=== PATIENT | male | born 1955 | race Two or more races ===

== ENCOUNTER 2024-06-10 05:42 | Emergency (ER) | payer BC, SELFPAY ==
[2024-06-10 05:44] VITALS: BMI 33.7
[2024-06-10 05:49] VITALS: BP 160/84; PULSE 60; RESP 18; TEMP 36.8; O2SAT 98
--- NOTE | 2024-06-10 06:24 | XR_ITS ---
Examination: Ribs, left, with PA chest, 5 views Technique: Chest PA, RIBS AP, RPO, LPO, AP coned lower ribs 5 views Exam date and time: June 10, 2024 0639 hrs. Indications: Patient fell today with injury to the left chest, left rib pain Findings: Mild prominence left ventricle No pneumothorax Suspicious for nondisplaced acute fracture left fifth rib anteriorly left sixth rib anteriorly Impression: No pneumothorax pulmonary contusion or hemothorax Suspicious for nondisplaced acute fractures left fifth sixth ribs anteriorly
[2024-06-10] MEDS: IBUPROFEN TAB 600 MG TABLET PO (07:29)
--- NOTE | 2024-06-10 07:31 | EDNOTE_ITS ---
ED Fall Injury RME/HPI General Chief Complaint: Chest Pain Stated Complaint: LFT SIDED RIB PAIN S/P FALLING OUT OF BED. Time Seen by Provider: 06/10/24 06:23 Arrival date/time: 06/10/24 05:42 68-year-old male presents to the emergency department complains of left-sided rib pain falling out of the bed last night patient reports no shortness of breath no abdominal pain no head or neck injury Limitations: no limitations Related Data Home Medications ?Medication ?Instructions ?Recorded ?Confirmed atorvastatin 10 mg tablet (Lipitor) 10 mg PO HS #0 tabs 01/05/17 02/12/24 clopidogrel 75 mg tablet (Plavix) 75 mg PO QDAY #0 tabs 01/23/17 02/12/24 colesevelam 625 mg tablet (WelChol) 625 mg PO QDAY 12/27/18 02/12/24 latanoprost 0.005 % eye drops 1 drp ophthalmic (eye) QPM 12/27/18 02/12/24 (Xalatan) zolmitriptan 5 mg disintegrating 5 mg PO QDAY PRN Headache 12/27/18 02/12/24 tablet Allergies Allergy/AdvReac Type Severity Reaction Status Date / Time peanut Allergy Intermediate facial Verified 06/10/24 05:47 swelling Review of Systems Review of Systems Systems Reviewed: All systems reviewed, normal except as documented Constitutional Constitutional: Reports system reviewed and no additional complaints, except as documented, Denies fever(s) and Denies headache(s) Eyes Eyes: Reports system reviewed and no additional complaints, except as documented and Denies blurry vision ENT Ears, Nose, Mouth, and Throat: Reports system reviewed and no additional complaints, except as documented, Denies headache(s), Denies nasal congestion and Denies nasal discharge Cardiovascular Cardiovascular: Reports system reviewed and no additional complaints, except as documented, Denies chest pain and Denies dyspnea Respiratory Respiratory: Reports system reviewed and no additional complaints, except as documented, Denies chest congestion, Denies cough and Denies dyspnea Gastrointestinal Gastrointestinal: Reports system reviewed and no additional complaints, except as documented and Denies abdominal pain Integumentary/Breasts Skin/Breast: Reports system reviewed and no additional complaints, except as documented and Denies rash Neurologic Neurologic: Reports system reviewed and no additional complaints, except as documented, Reports as per HPI and Denies headache(s) Past Medical History Past Medical History NEUROLOGIC: Positive Migraine; Negative Neurological Disorders or Seizures CARDIAC: Positive Cardiac Disorders (4 CORONARY STENTS LAST 2 - 2 YEARS AGO), Coronary Artery Disease and Hypercholesterolemia (on meds); Negative Angina, Congestive Heart Failure or Hypertension RESPIRATORY: Negative Chronic Obstructive Pulmonary Disease (COPD) or Sleep Apnea (SNORES. NOT DIAGNOSED) GASTROINTESTINAL: Negative Gastrointestinal Disorders or Hepatitis GENITOURINARY: Positive Prostate Cancer; Negative Genitourinary Disorders or Renal Disease ENT: Positive Glaucoma ENDOCRINE: Negative Endocrine Disorders, Diabetes Mellitus Type 1 or Diabetes Mellitus Type 2 HEMATOLOGIC: Negative Blood Disorders or Clotting Problems (TAKES PLAVIX) OTHER HISTORY: Positive Radiation Therapy (FOR PROSTATE CA), Chicken Pox, Measles, Mumps, Cancer and Prostate Cancer; Negative Falls, Organ Transplant or MRSA Family History FAMILY HISTORY: Positive Family Psychiatric Problems (FATHER OCD), Family Cardiac Disorders (FATHER) and Family Cancer (MOTHER- LUNG CA, FATHER - PROSTATE CA) Surgical History SURGICAL: Positive Coronary Stent (2017), Cardiac Catheterization, Angiogram (2017) and Transurethral Resection; Negative Endocrine Surgery, Ear Surgery, Abdominal Surgery, Joint Replacement, Brain Shunt, Vasectomy or Organ Transplant Social History SMOKING STATUS: Never smoker ED Exam General Limitations: Present no limitations General appearance: Present alert and in no apparent distress Head Head exam: Present atraumatic, normocephalic and normal inspection Eye Eye exam: Present normal appearance, PERRL and EOMI; Absent conjunctival injection ENT ENT exam: Present normal exam, normal oropharynx and mucous membranes moist Neck Neck exam: Present normal inspection, full ROM and trachea midline; Absent tenderness Chest Chest inspection: Present normal inspection, symmetric chest wall rise and tenderness (Left-sided rib pain) Respiratory Respiratory exam: Present normal lung sounds bilaterally; Absent respiratory distress Cardiovascular Cardiovascular exam: Present regular rate, normal rhythm and normal heart sounds; Absent bradycardia or tachycardia Abdominal Exam Abdominal exam: Present soft and normal bowel sounds; Absent distention or tenderness Extremities Exam Extremities exam: Present normal inspection and full ROM; Absent tenderness Back Exam Back exam: Present normal inspection and full ROM Neurological Exam Neurological exam: Present alert, oriented X3 and CN II-XII intact Psychiatric Psychiatric exam: Present normal affect and normal mood Skin Skin exam: Present warm, dry, intact and normal color Course Quality Measures none Orders Category Date Time Status XR ribs LT min 3V w CXR1V Stat Exams 06/10/24 06:24 Completed HYDROcodone*/APAP 5/325 [Blanchard 5/325] Med 06/10/24 06:26 Discontinued 1 tab PO X1 ONE Ibuprofen Tab [Motrin Tab] Med 06/10/24 07:16 Discontinued 600 mg PO X1 ONE Vital Signs Vital signs: Vital Signs Temperature 98.2 F 06/10/24 05:49 Pulse Rate 60 06/10/24 05:49 Respiratory Rate 18 06/10/24 05:49 Blood Pressure 160/84 H 06/10/24 05:49 Pulse Oximetry (%) 98 06/10/24 05:49 Oxygen Delivery Method Room Air 06/10/24 05:49 O2 saturation 98% room air within normal limits Fall MDM Narrative MDM Narrative:: 68-year-old male presents to the emergency department complains of left-sided rib pain falling out of the bed last night patient reports no shortness of breath no abdominal pain no head or neck injury On exam patient walks with steady gait no abnormal neurological findings On exam patient does have tenderness rib region X-ray of the ribs and chest obtained patient has fifth and sixth rib fractures consistent with symptoms and pain Patient given pain medication here and discharged home For emergent concerns patient instructed return to the ER immediately otherwise to follow-up with PCP Patient data External records reviewed:: [facility] previous records Clinical information provided by:: patient Social determinants that could affect healthcare access:: none Patient has the following chronic illnesses:: See history How is presenting disease/condition affected by chronic disease/condition?: uneffected by Evaluation data The following diagnostics were reviewed and interpreted by me:: radiology exam(s) Lab and/or radiology exams considered but not ordered:: Radiology obtain Interpretation Summary: Reviewed by me Medications / Prescriptions Medications or Prescriptions considered but not ordered:: Given Medication administrations:: Medication Administration History Discontinued Medications Hydrocodone Bitart/Acetaminophen (Hydrocodone/Apap 5/325 Tablet) 1 tab PO X1 ONE Stop: 06/10/24 06:27 Last Admin: 06/10/24 07:12 Dose: Not Given Documented By: DANICA Non-Admin Reason: Patient Refused Ibuprofen (Ibuprofen Tab 600 Mg Tablet) 600 mg PO X1 ONE Stop: 06/10/24 07:17 Last Admin: 06/10/24 07:29 Dose: 600 mg Documented By: DANICA Given Consultations Consultation(s) initiated? (list below): No Diagnosis Fall Differential Diagnosis: other (Rib fracture, rib contusion) Most likely diagnosis given after review of the tests above:: Rib fracture Admission Indicated Admission indicated?: not indicated Admission Request Was there a request for admission?: No Disposition Plan Disposition Plan: Discharge Discharge Attestation Discharge Attestation: The patient and all family members were given an opportunity to ask questions and understood the discharge instructions. Discharge instructions specifically effects, indications for sooner follow up or return to the emergency department, and the expected course of current diagnosis. Patient condition: Stable Discharge Plan Plan Patient Disposition: HOME (Self Care) Disposition Comment: Stable Prescriptions/Referrals Prescriptions/Med Rec: No Action atorvastatin [Lipitor] 10 MG tablet 10 mg PO HS Qty: 0 clopidogrel [Plavix] 75 MG tablet 75 mg PO QDAY Qty: 0 latanoprost [Xalatan] 0.005 % Drops 1 drp OPHTHALMIC (EYE) QPM zolmitriptan 5 mg Tablet,Disintegrating 5 mg PO QDAY PRN (Reason: Headache) colesevelam [WelChol] 625 mg Tablet 625 mg PO QDAY Referrals: Amanda Donnelly FNP [Primary Care Provider] - 06/11/24 Problem List Clinical Impression: Closed fracture of rib of left side Patient/Caregiver Discharge Instructions Education Materials: ED Rib Fracture Additional Instructions: X-ray consistent with rib fractures fifth and sixth rib left side Patient discharged home in no distress to follow-up with primary care doctor in the next 24 to 48 hours and for any worsening symptoms to return to the ER immediately Print Language: Turkmen Stand Alone Forms: Swati Award Info., Patient Portal Info Letter KULDIP/SANA Supervising Physician MONICA Supervising Physician: Dr. wisdom
== END 2024-06-10 07:43 | disposition home or self-care (01) ==
PROVIDERS: Emergency Provider Emergency Medicine; PCP Nurse Practitioner Family
DX: S22.32XA Fracture of one rib, left side, initial encounter for closed fracture (principal); W06.XXXA Fall from bed, initial encounter
CPT/HCPCS: 71101; 99283; A9270

== ENCOUNTER → 2024-10-21 | Outpatient (BNVA) | payer BC, SELFPAY | END | disposition home or self-care (01) | PROVIDERS: PCP Family Medicine; Referring Provider Family Medicine; Visit Provider Urology | DX: C61 Malignant neoplasm of prostate (principal); Z92.3 Personal history of irradiation; N39.3 Stress incontinence (female) (male); I25.10 Atherosclerotic heart disease of native coronary artery without angina pectoris; E66.9 Obesity, unspecified; Z68.35 Body mass index [BMI] 35.0-35.9, adult; E11.9 Type 2 diabetes mellitus without complications; E78.00 Pure hypercholesterolemia, unspecified | CPT/HCPCS: 81003; 99212; G0463 ==

== ENCOUNTER → 2024-10-21 | Outpatient (CLI) | payer BC, SELFPAY ==
[2024-10-21 08:43] LABS: Prostate Specific Antigen < 0.10 ng/mL (0-4.00)
== END | disposition home or self-care (01) ==
PROVIDERS: PCP Family Medicine; Referring Provider Urology; Visit Provider Urology
DX: C61 Malignant neoplasm of prostate (principal)
CPT/HCPCS: 36415; 84153

== ENCOUNTER 2025-02-06 06:37 | Day surgery (SDC) | payer BC, SELFPAY ==
--- NOTE | 2025-02-04 09:58 | EKG_ITS ---
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
[2025-02-04 10:11] LABS: Basophils # (Auto) 0.1 Thou/mm3 (0.0-0.2); Basophils % (Auto) 1 % (0-2.5); Eosinophils # (Auto) 0.2 Thou/mm3 (0.0-0.5); Eosinophils % (Auto) 3 % (0-10); Hematocrit 45.0 % (41.0-53.0); Hemoglobin 14.9 g/dL (13.5-16.0); Immature Granulocytes Auto 0.03 Thou/mm3 (0.00-0.00); Lymphocytes # (Auto) 2.1 Thou/mm3 (1.0-4.8); Lymphocytes % (Auto) 25 % (10-50); Mean Corpuscular HGB Conc 33.1 g/dl (31.0-37.0); Mean Corpuscular Hemoglobin 29.3 pg (25.0-35.0); Mean Corpuscular Volume 89 fL (80-100); Monocytes # (Auto) 0.7 Thou/mm3 (0.0-0.8); Monocytes % (Auto) 8 % (0-12); Neutrophils # (Auto) 5.2 Thou/mm3 (1.8-7.7); Neutrophils % (Auto) 63 % (37-80); Nucleated Red Blood Cell # 0.00 Thou/mm3 (0.00-0.00); Nucleated Red Blood Cell % 0 /100 WBC (0); Platelet Count 194 Thou/mm3 (140-440); RDW Standard Deviation 43.9 fL (35.1-43.9); Red Blood Count 5.08 Miln/mm3 (4.50-5.90); White Blood Count 8.3 Thou/mm3 (3.8-10.6)
[2025-02-04 10:18] LABS: INR 1.0 (0.9-1.3); Partial Thromboplastin Time 25.9 Seconds (22.0-36.0); Prothrombin Time 11.2 Seconds (9.0-12.2)
[2025-02-04 10:26] LABS: Anion Gap 9 (7-16); BUN/Creatinine Ratio 16 Ratio (12-20); Blood Urea Nitrogen 14 mg/dL (9-23); Calcium 9.1 mg/dL (8.3-10.6); Carbon Dioxide 26.4 mMol/L (20.0-31.0); Chloride 108 mMol/L (98-107); Creatinine (Component) 0.9 mg/dL (0.6-1.3); Glucose 126 mg/dL (74-106); Osmolality,Calculated 287 (275-295); Potassium 4.1 mMol/L (3.4-5.1); Sodium 143 mMol/L (136-145); eGFR > 60 See Note
[2025-02-04 16:54] VITALS: BMI 34.4
[2025-02-06] VITALS (17 sets, daily range): BP systolic 133–181; BP diastolic 73–90; PULSE 53–69; RESP 16–23; TEMP 36.4; O2SAT 93–96; BMI 35.0
--- NOTE | 2025-02-06 15:16 | ESOP_ITS ---
RE: ADINA HESTER : 1955 DATE OF OPERATION: 02/06/2025 PROCEDURES PERFORMED: 1. Diagnostic left heart cardiac catheterization, selective coronary angiogram, and left ventricular angiogram, CPT 95105. 2. PCI and PTCA stent placement of the mid left circumflex artery, placement of drug-eluting stent 2.5 x 8 mm Medtronic Vermilion drug-eluting stent, CPT 58998. 3. Conscious sedation of 1-hour duration. 4. Ultrasound-guided access of the right radial artery. DIAGNOSES: 1. Coronary artery disease status post stent placement and angioplasty. 2. Hypertension. 3. Angina pectoris. 4. Abnormal stress test. HISTORY AND INDICATIONS: The patient is a 69-year-old male with a history of hypertension and coronary artery disease, stent placement in the left anterior descending, circumflex artery who has been doing well until recently. He has had unspecified anginal chest tightness and shortness of breath. A cardiac stress test and nuclear scan was abnormal and showed inferolateral ischemia; hence, a coronary angiogram was recommended to assess if the patient is a candidate for coronary intervention and revascularization. DESCRIPTION OF PROCEDURE: The patient was brought to the cardiac catheterization laboratory and he was given 2 mg of Versed and 100 mcg of fentanyl for sedation. Right radial approach was used. The right radial artery was cannulated with a micropuncture technique. Ultrasound guidance was used. A 6-Uzbek Glidesheath was introduced. A radial cocktail was given with 3000 units of heparin. Subsequently, diagnostic right and left coronary angiogram, left heart catheterization, and left ventricular angiogram were performed with a 5-Uzbek TIG 4 diagnostic catheter. Diagnostic procedure showed following findings. Right coronary artery is largely dominant and showed mild irregularities. No significant stenosis. There is evidence of collateral filling the left circumflex artery and distal circumflex artery. Left coronary system: Left main coronary artery is normal. Left anterior descending artery showed a stent in the proximal LAD. There is mild stenosis about 20% to 30% narrowing in couple of views, but good POWER 3 flow. Circumflex artery showed a stent in the proximal circumflex artery, but distal to it in the mid circumflex artery showed a 99% stenosis with POWER 2 flow. Left ventricular angiogram showed normal left ventricular wall motion. Ejection fraction is 70%. Left ventricular pressure 160/15. Aortic pressure 160/80. No gradient across the aortic valve. Following diagnostic procedure intervention undertaken. PCI details are as follows: The patient was given IV heparin, an additional 5000 units for a total of 8. ACT was 300. Aspirin and Plavix loading dose was given, 300 mg of Plavix. We proceeded with PCI. A 6-Uzbek EBU 3.5 guiding catheter was used to cannulate the left main coronary artery. A 0.014 Runthrough guidewire was used to cross the lesion successfully. Predilation of the lesion was performed with a 2.5 mm balloon. Subsequently, a 2.5 x 8 mm Vermilion Medtronic drug-eluting stent was deployed successfully with initially with 10 atmospheric pressures, subsequently 6 atmospheric pressures. Multiple inflations were performed up to 2.75 mm diameter with an excellent result following the procedure. There were no complications. The final angiogram showed a widely patent circumflex artery with no residual stenosis. SUMMARY OF FINDINGS: 1. Single-vessel coronary artery disease with 99% stenosis of the circumflex artery mid segment, underwent successful PCI and stent placement with a drug-eluting stent. POWER flow pre-procedure was 2 and post-procedure was 3. mid circumflex artery pre-procedure 99%, and post-procedure 0%. 2. [id number] in-stent restenosis of the proximal left anterior descending artery. 3. Normal left ventricular function. RECOMMENDATIONS: Continue medical management. For the recurrent angina pectoris, we will reevaluate him again, possibly for restenosis of the LAD. DT: 13:28:53 TT: 14:46:00 Ref: [id number] - TID: [id number] [facility]
[2025-02-06 15:32] LABS: ACT (CATH LAB ONLY) 303.0 Seconds (89-169)
== END 2025-02-06 13:50 | disposition home or self-care (01) ==
PROVIDERS: PCP Family Medicine; Referring Provider Internal Medicine Cardiovascular Disease; Visit Provider Internal Medicine Cardiovascular Disease
PROC: (CPT 93458; principal; 2025-02-06 07:30)
DX: I25.118 Atherosclerotic heart disease of native coronary artery with other forms of angina pectoris (principal); I10 Essential (primary) hypertension; E78.00 Pure hypercholesterolemia, unspecified; Z95.5 Presence of coronary angioplasty implant and graft; R94.30 Abnormal result of cardiovascular function study, unspecified; Z01.810 Encounter for preprocedural cardiovascular examination; T82.855A Stenosis of coronary artery stent, initial encounter; Y83.1 Surgical operation with implant of artificial internal device as the cause of abnormal reaction of the patient, or of later complication, without mention of misadventure at the time of the procedure
CPT/HCPCS: 93458; C9600; 36415; 80048; 85025; 85347; 85610; 85730; 93005; 99152; 99153; A4649; C1725; C1769; C1874; C1887; C1894; J0168; J0461; J1643; J2250; J2312; J2371; J3010; J3490; Q9967; A9270; J1920; J2305

== ENCOUNTER → 2025-04-27 | Outpatient (BNVA) | payer BC, SELFPAY | END | disposition home or self-care (01) | PROVIDERS: PCP Family Medicine; Referring Provider Family Medicine; Visit Provider Urology | DX: C61 Malignant neoplasm of prostate (principal); I10 Essential (primary) hypertension; Z92.3 Personal history of irradiation; Z87.891 Personal history of nicotine dependence | CPT/HCPCS: 81003; 99212; G0463 ==

== ENCOUNTER → 2025-04-27 | Outpatient (CLI) | payer BC, SELFPAY ==
[2025-04-27 10:23] LABS: Prostate Specific Antigen < 0.10 ng/mL (0-4.00)
== END | disposition home or self-care (01) ==
PROVIDERS: PCP Family Medicine; Referring Provider Urology; Visit Provider Urology
DX: C61 Malignant neoplasm of prostate (principal)
CPT/HCPCS: 36415; 84153